=== PATIENT | female | born 1990 | race Two or more races ===

== ENCOUNTER 2017-12-17 22:42 | Emergency (ER) | payer OTHER ==
[2017-12-17 22:50] VITALS: BP 127/89; PULSE 65; TEMP 98.2; BMI 18.2
--- NOTE | 2017-12-17 22:58 | PDOC ---
History of Present Illness - General Chief Complaint: Bite Stated Complaint: DOG BITE Time Seen by Provider: 12/17/17 22:56 History Source: Patient Exam Limitations: No Limitations - History of Present Illness Initial Comments: 12/17/17 23:02 This is a 27-year-old female who comes in for evaluation of a dog bite. Patient said she was bit by her dog. Patient said there was minimal bleeding and the dog is otherwise healthy it's immunizations are up-to-date and patient is otherwise healthy. PAST MEDICAL HISTORY: no significant history PAST SURGICAL HISTORY: no significant history FAMILY HISTORY: no pertinant history SOCIAL HISTORY: Pt lives with family and is employed. MEDICATIONS: reviewed ALLERGIES: As per nursing notes Review of Systems General: No fevers or chills, no weakness, no weight loss HEENT: No change in vision. No sore throat,. No ear pain CardioVascular: No chest pain or shortness of breath Respiratory:No cough, or wheezing. Gastrointestinal: no nausea, vomitting, diarrhea or constipation, No rectal bleeding Genitourinary: No dysuria, hematuria, or frequency Musculoskeletal: No joint or muscle pain or swelling, dog bite Neurologic: No headache, vertigo, dizziness or loss of consciousness Psychiatric: nor depression Skin: No rashes or easy bruising Endocrine: no increased thirst or abnormal weight change Allergic: no skin or latex allergy All other systems reviewed and normal GENERAL: The patient is awake, alert, and fully oriented, in no acute distress. HEAD: Normal with no signs of trauma. EYES: Pupils equal, round and reactive to light, extraocular movements intact, sclera anicteric, conjunctiva clear. EXTREMITIES: Normal range of motion, no edema. Left forearm dorsum there is a very superficial abrasion to the midportion of the forearm. There is no bleeding there is no puncture wound associated with it. NEUROLOGICAL: Normal speech, normal gait. grossly intact PSYCH: Normal mood, normal affect. SKIN: Warm, Dry, normal turgor, no rashes or lesions noted. Assessment and plan: This is a 27-year-old female who comes in complaining of a dog bite. On exam there was a superficial abrasion to the dorsum of the forearm. There was no deep component to it. Skin was barely broken. Patient had applied antibiotic ointment and a Band-Aid and told her to continue to apply antibiotic ointment and a Band-Aid and discharged her home Past History - Past Medical History Allergies/Adverse Reactions: Allergies Allergy/AdvReac Type Severity Reaction Status Date / Time No Known Allergies Allergy Unverified 12/17/17 22:43 Home Medications: Ambulatory Orders NK [No Known Home Medication] 12/17/17 COPD: No - Suicide/Smoking/Psychosocial Hx Smoking History: Never smoked *Physical Exam - Vital Signs Last Vital Signs Temp Pulse Resp BP Pulse Ox 98.2 F 65 16 127/89 98 12/17/17 22:44 12/17/17 22:44 12/17/17 22:44 12/17/17 22:46 12/17/17 22:44 *DC/Admit/Observation/Transfer Diagnosis at time of Disposition: Dog bite of arm Qualifiers: Encounter type: initial encounter Laterality: left Qualified Code(s): S41.152A - Open bite of left upper arm, initial encounter; W54.0XXA - Bitten by dog, initial encounter - Discharge Dispostion Disposition: HOME Condition at time of disposition: Stable Decision to Admit order: No - Referrals - Patient Instructions Printed Discharge Instructions: How to Care for a Domestic Animal Bite Additional Instructions: U can clean it once a day with some peroxide and reapply bacitracin and a Band- Aid for the next 3-4 days. Return to the emergency department immediately with ANY new, persistent or worsening symptoms. Continue any medications as previously prescribed by your physician. You should follow up with your primary doctor as soon as possible regarding today's emergency department visit. . Please make sure your doctor reviews the results of your emergency evaluation. Thank you for coming to the Emergency Department today for your care. It was a pleasure to see you today. Please note that your evaluation is INCOMPLETE until you follow-up with your doctor. - Post Discharge Activity
== END 2017-12-17 23:24 | disposition home or self-care (01) ==
LOC: FER 22:42
DX: S41.152A Open bite of left upper arm, initial encounter (principal); W54.0XXA Bitten by dog, initial encounter; Y93.89 Activity, other specified; Y92.9 Unspecified place or not applicable
CPT/HCPCS: 99282-25

== ENCOUNTER 2022-02-20 20:10 | Emergency (ER) | payer OTHER ==
[2022-02-20] MEDS ORDERED: ERYTHROMYCIN 0.5% OPHTHALMIC OINTMENT 3.5 GM TUBE OS ONE ×2 (20:14→20:24)
[2022-02-20] MEDS ORDERED: diphenhydrAMINE HCL 25 MG CAPSULE (FP) PO ONE ×2 (20:15→20:20)
[2022-02-20] MEDS ORDERED: DEXAMETHASONE LIQUID 0.5 MG/5 ML PO ONE (20:15)
[2022-02-20 20:16] VITALS: BP 127/81; PULSE 79; RESP 20; TEMP 98.2; BMI 18.8
[2022-02-20] MEDS ORDERED: ERYTHROMYCIN 0.5% OPHTHALMIC OINTMENT 3.5 GM TUBE ONE (20:20)
[2022-02-20] MEDS ORDERED: DEXAMETHASONE SOD PHOSPHATE 10 MG/1 ML VIAL ONE (20:20)
== END 2022-02-20 20:31 | disposition home or self-care (01) ==
LOC: FER 20:10
DX: S00.86XA Insect bite (nonvenomous) of other part of head, initial encounter (principal); W57.XXXA Bitten or stung by nonvenomous insect and other nonvenomous arthropods, initial encounter
CPT/HCPCS: 99281-25